=== PATIENT | male | born 1990 | race American Indian/Alaskan Native ===

== ENCOUNTER 2020-02-22 17:14 | Emergency (ER) | payer SELFPAY ==
[2020-02-22 17:22] VITALS: BP 110/63
--- NOTE | 2020-02-22 17:22 | Emergency Department Report ---
Blank Doc - Documentation Documentation: 29-year-old male that presents with subjective fever, loss of taste, body aches and cough. This initial assessment/diagnostic orders/clinical plan/treatment(s) is/are subject to change based on patient's health status, clinical progression and re- assessment by fellow clinical providers in the ED. Further treatment and workup at subsequent clinical providers discretion. Patient/guardians urged not to elope from the ED as their condition may be serious if not clinically assessed and managed. Initial orders include: 1- Patient sent to [facility] for further evaluation and treatment 2- CXR
--- NOTE | 2020-02-22 17:59 | XRay Report ---
CHEST 2 VIEWS INDICATION / CLINICAL INFORMATION: cough. COMPARISON: None available. FINDINGS: SUPPORT DEVICES: None. HEART / MEDIASTINUM: No significant abnormality. LUNGS / PLEURA: No significant pulmonary or pleural abnormality. .No pneumothorax. ADDITIONAL FINDINGS: No significant additional findings. IMPRESSION: 1. No acute findings. Signer Name: Gonzalo Ni MD Signed: 02/22/2020 5:55 PM Workstation Name: [id number]
--- NOTE | 2020-02-22 19:58 | Emergency Department Report ---
ED ENT HPI - General Chief complaint: Upper Respiratory Infection Stated complaint: CHILL/SORE THROAT/BODY WEAKNESS Time Seen by Provider: 02/22/20 17:20 Source: patient Mode of arrival: Ambulatory Limitations: No Limitations - History of Present Illness Initial comments: 29-year-old -[place] male presents to the emergency room stating that he looked up all the symptoms and signs of COVID and feels that he has all of them. Patient complains to me that he has a sore throat chills loss of appetite and body aches. Patient also admits to chills and swallowing causes his throat to hurt. Patient denies any fever no cough no shortness of breath. Patient reports he is able to drink but has no taste can still smell. Patient denies any past medical history currently takes no medications on a daily basis. Patient denies any Kovic contact. Patient reports he been taking NyQuil CIWA core and Advil for his symptoms. Patient denies any past medical history currently takes no medications on a daily basis and has no known drug allergies. MD complaint: sore throat, difficulty swallowing Onset/Timin -: days(s) Location: throat Severity: mild Quality: burning, sharp Consistency: intermittent Improves with: none Worsens with: swallowing Associated Symptoms: pain with swallowing, sore throat. denies: fever, cough, gum swelling, tinnitus, hearing loss, discharge from ear, rhinorrhea - Related Data Previous Rx's Medication Instructions Recorded Last Taken Type Amoxicillin [Trimox CAP] 500 mg PO Q8H 10 Days #30 capsule 02/22/20 Unknown Rx Allergies Allergy/AdvReac Type Severity Reaction Status Date / Time No Known Allergies Allergy Unverified 02/22/20 17:20 ED Dental HPI - General Chief complaint: Upper Respiratory Infection Stated complaint: CHILL/SORE THROAT/BODY WEAKNESS Time Seen by Provider: 02/22/20 17:20 Source: patient Mode of arrival: Ambulatory Limitations: No Limitations - Related Data Previous Rx's Medication Instructions Recorded Last Taken Type Amoxicillin [Trimox CAP] 500 mg PO Q8H 10 Days #30 capsule 02/22/20 Unknown Rx Allergies Allergy/AdvReac Type Severity Reaction Status Date / Time No Known Allergies Allergy Unverified 02/22/20 17:20 ED Review of Systems ROS: Stated complaint: CHILL/SORE THROAT/BODY WEAKNESS Other details as noted in HPI Comment: All other systems reviewed and negative ED Past Medical Hx - Past Medical History Previous Medical History?: No - Surgical History Past Surgical History?: No - Medications Home Medications: Home Medications Medication Instructions Recorded Confirmed Last Taken Type Amoxicillin [Trimox CAP] 500 mg PO Q8H 10 Days #30 capsule 02/22/20 Unknown Rx ED Physical Exam - General Limitations: No Limitations General appearance: alert, in no apparent distress - Head Head exam: Present: atraumatic, normocephalic - Eye Eye exam: Present: normal appearance - Expanded ENT Exam Expanded Mouth exam: Present: normal external inspection Throat exam: Positive: tonsillar erythema, tonsillomegaly. Negative: tonsillar exudate, R peritonsillar mass, L peritonsillar mass - Neck Neck exam: Present: normal inspection, full ROM - Respiratory Respiratory exam: Present: normal lung sounds bilaterally. Absent: respiratory distress - Cardiovascular Cardiovascular Exam: Present: normal rhythm, tachycardia. Absent: systolic murmur, diastolic murmur, rubs, gallop - GI/Abdominal GI/Abdominal exam: Present: soft. Absent: distended, tenderness - Back Exam Back exam: Present: normal inspection, full ROM - Neurological Exam Neurological exam: Present: alert, oriented X3 - Psychiatric Psychiatric exam: Present: normal affect, normal mood - Skin Skin exam: Present: warm, dry, intact, normal color. Absent: rash ED Course Vital Signs 02/22/20 17:21 Temperature 98.2 F Pulse Rate 104 H Respiratory 18 Rate Blood Pressure 110/63 [Right] O2 Sat by Pulse 98 Oximetry ED Medical Decision Making - Medical Decision Making 29-year-old -[place] male presents to the emergency room stating that he looked up all the symptoms and signs of COVID and feels that he has all of them. Patient complains to me that he has a sore throat chills loss of appetite and body aches. Patient also admits to chills and swallowing causes his throat to hurt. Patient denies any fever no cough no shortness of breath. Patient reports he is able to drink but has no taste can still smell. Patient denies any past medical history currently takes no medications on a daily basis. Patient denies any Kovic contact. Patient reports he been taking NyQuil CIWA core and Advil for his symptoms. Patient denies any past medical history currently takes no medications on a daily basis and has no known drug allergies. Patient has a normal examination except for tonsillar hypertrophy and tonsillar erythematous. Will treat patient for pharyngitis encourage patient to take Tylenol or ibuprofen for pain. Patient can follow-up with a primary care provider. Also encouraged patient to go get a COVID test in the community. Handout was given to patient. Critical care attestation.: If time is entered above; I have spent that time in minutes in the direct care of this critically ill patient, excluding procedure time. ED Disposition Clinical Impression: Pharyngitis Disposition: [id number] TO HOME OR SELFCARE Is pt being admited?: No Does the pt Need Aspirin: No Condition: Stable Instructions: Pharyngitis (ED) Additional Instructions: Complete antibiotics as prescribed. Continue with warm salt gargles and continue with Tylenol or ibuprofen for pain management. Increase your water and fluid intake advance her diet as tolerated. Follow-up with a primary care provider if his symptoms persist or gets worse. Prescriptions: Amoxicillin [Trimox CAP] 500 mg PO Q8H 10 Days #30 capsule Referrals: PRIMARY CARE [Primary Care Provider] - 3-5 Days [facility] [Provider Group] - 3-5 Days Forms: Work/School Release Form(ED)
== END 2020-02-22 20:28 | disposition home or self-care (01) ==
LOC: ED 17:14
DX: J02.9 Acute pharyngitis, unspecified (principal)
CPT/HCPCS: 71046; 99283